=== PATIENT | male | born 1955 | race African-American/Black ===

== ENCOUNTER 2024-12-21 09:23 | Emergency (ER) | payer BC ==
[2024-12-21] MEDS ORDERED: Fluorescein Opthalmic Strip ONE (09:30)
[2024-12-21] MEDS ORDERED: Tetracaine 0.5% PF 4 ML BOT ONE (09:30)
== END 2024-12-21 10:16 | disposition home or self-care (01) ==
LOC: NAV ERS 09:23
DX: S05.02XA Injury of conjunctiva and corneal abrasion without foreign body, left eye, initial encounter (principal); E11.9 Type 2 diabetes mellitus without complications; E78.00 Pure hypercholesterolemia, unspecified; I10 Essential (primary) hypertension; Z79.84 Long term (current) use of oral hypoglycemic drugs; Z79.899 Other long term (current) drug therapy; W44.8XXA Other foreign body entering into or through a natural orifice, initial encounter
CPT/HCPCS: 99283